=== PATIENT | male | born 1960 | race American Indian/Alaskan Native ===

== ENCOUNTER 2017-06-22 08:04 | Emergency (ER) | payer MEDICAID ==
--- NOTE | 2017-06-22 09:26 | Cat Scan Report ---
CT HEAD WITHOUT CONTRAST INDICATION: Fall. History of brain and lung cancer. COMPARISON: None similar. FINDINGS: Noncontrast head CT demonstrates extensive bilateral white matter hypodensities within both frontal lobes, left more than right and extending to the cortex/vertex, possibly edema and/or encephalomalacia with grossly preserved supratentorial ventricles and sulci. No acute hemorrhage or abnormal extra axial fluid collections. Posterior fossa now demonstrates approximately 3 x 3.2 cm left cerebellar hypodense edema as on axial image 18, series 2, amongst others with mild flattening of the fourth ventricle on the left and slightly displaced towards the right by approximately 2-3 mm. Basilar cisterns though preserved. Normal eye globes. Partially imaged 3-4 mm rightward nasal septal spur. Mild right maxillary sinus mucosal thickening medially as also slight sphenoid sinus mucosal thickening anteriorly. Mild to moderate bilateral ethmoid air cell opacification. Clear remainder imaged paranasal sinuses. Mild atherosclerotic ICA calcifications. Normal calvarium and scalp. Numerous missing teeth and a small mandibular dental filling. CONCLUSION: 1. Approximately 3 cm left cerebellar hypodense edema with mild mass effect upon the fourth ventricle, as detailed above, possibly metastatic disease/edema in light of known cancer or infarct. 2. Extensive bilateral white matter hypodense possible edema as well. 3. Few other incidental findings, as above. Please also correlate clinically and further with contrasted MRI, as warranted. Thank you for the opportunity to participate in this patient's care.
[2017-06-22 10:07] LABS: Hematocrit 32.8 % (35.5-45.6); Hemoglobin 10.8 gm/dl (11.8-15.2); Mean Corpuscular HGB Conc 33 % (32-34); Mean Corpuscular Hemoglobin 34 pg (28-32); Mean Corpuscular Volume 102 fl (84-94); Platelet Count 253 K/mm3 (140-440); Red Blood Count 3.23 M/mm3 (3.65-5.03); White Blood Count 7.7 K/mm3 (4.5-11.0)
[2017-06-22 10:13] LABS: Red Cell Distribution Width 21.1 % (13.2-15.2)
[2017-06-22 10:22] LABS: Anion Gap 18 mmol/L; BUN/Creatinine Ratio 22; Blood Urea Nitrogen 13 mg/dL (9-20); Calcium 9.3 mg/dL (8.4-10.2); Carbon Dioxide 23 mmol/L (22-30); Chloride 100.3 mmol/L (98-107); Glucose 86 mg/dL (75-100); Potassium 3.8 mmol/L (3.6-5.0); Sodium 137 mmol/L (137-145)
[2017-06-22 10:34] LABS: INR 1.14 (0.87-1.13)
[2017-06-22 10:35] LABS: Partial Thromboplastin Time 41.4 Sec. (24.2-36.6)
[2017-06-22 10:57] LABS: Anisocytosis 1+; Basophils % (Manual) 0 % (0.0-1.8); Blastocytes % (Manual) 0 %; Diff Status Complete; Platelet Estimate Consistent w Auto
--- NOTE | 2017-06-22 11:24 | XRay Report ---
PORTABLE CHEST INDICATION: Tachycardia, weakness. COMPARISON: 06/17/2017 FINDINGS: Portable, frontal chest radiograph again demonstrates extensive, approximately 10-11 cm right upper lobe opacification, possibly consolidation or mass. Similar size, extensive emphysematous involvement of the left upper lobe also seen with slightly crowded markings in the remainder aerated lungs. Mild left lower lung atelectasis or scarring. Stable cardiomediastinal silhouette, left subclavian port tip about the cavoatrial junction, EKG leads and osseous structures. CONCLUSION: No significant interval change in large right upper lobe opacity in this patient with underlying emphysematous changes and few other findings, as above. Please correlate clinically. Direct comparison with more remote chest imaging would also be helpful, if available. Thank you for the opportunity to participate in this patient's care.
[2017-06-22] MEDS ORDERED: DECADRON IV ONE (12:11)
[2017-06-22] MEDS ORDERED: NACL 0.9% 250ML 250 ML ONE (12:38)
[2017-06-22] MEDS ORDERED: NACL 0.9% 250ML 250 ML IV ONE (12:38)
--- NOTE | 2017-06-22 13:08 | Emergency Department Report ---
ED General Adult HPI - General Chief complaint: Neuro Symptoms/Deficit Stated complaint: FALL,HIT HEAD,SPEECH SLURRED Time Seen by Provider: 06/22/17 10:41 Source: patient, family, RN notes reviewed, old records reviewed Mode of arrival: Wheelchair Limitations: Physical Limitation, Other (patient is a poor historian.) - History of Present Illness Initial comments: This is a 56-year-old male. The patient is previously unknown to this provider. Patient has a past medical history of lung adenocarcinoma. Recently moved here from [place]. Unknown what his metastatic. Patient has been previously hospitalized at the [facility]. His medical oncologist appears to be a Dr. Rocco Bunch. Patient is supposed to be taking chemotherapy, however he does not know what chemotherapy agents he is taking. Family does have some of his paperwork with him, it appears that he was on carboplatin, as well as alimta; this is from paperwork from February 2017. As per triage nurse documentation, patient is brought to the hospital by family for fall and generalized weakness. Patient had a fall yesterday and a fall this morning. Patient can't recall the fall. He has chronic weakness in the right upper and right lower extremity. Patient is a poor historian, he cannot describe exacerbating or relieving factors, nor he can describe a qualitative nature of his symptoms. He denies headache and neck pain, chest pain, abdominal pain. He has chronic shortness of breath which is not a new, worsening or different. -: Sudden Radiation: other (per hpi) Severity scale (0 -10): 0 Quality: other (per hpi) Consistency: other (per hpi) Improves with: other (per hpi) Associated Symptoms: confusion, loss of appetite, shortness of breath, weakness - Related Data Previous Rx's Medication Instructions Recorded Last Taken Type Promethazine [Phenergan TAB] 25 mg PO Q6HR PRN #20 tab 06/17/17 Unknown Rx metroNIDAZOLE [Flagyl] 500 mg PO Q8HR #21 tablet 06/17/17 Unknown Rx valACYclovir [Valtrex] 500 mg PO TID #21 tab 06/17/17 Unknown Rx Allergies Allergy/AdvReac Type Severity Reaction Status Date / Time No Known Allergies Allergy Verified 06/17/17 00:06 ED Review of Systems ROS: Stated complaint: FALL,HIT HEAD,SPEECH SLURRED Other details as noted in HPI Comment: Unobtainable due to pts medical conditions ED Past Medical Hx - Past Medical History Previous Medical History?: Yes Hx of Cancer: Yes (lung, brain) Hx Seizures: Yes Additional medical history: Anemia. Anorexia. AMS - Surgical History Past Surgical History?: No - Social History Smoking Status: Former Smoker Substance Use Type: Prescribed - Medications Home Medications: Home Medications Medication Instructions Recorded Confirmed Last Taken Type Promethazine [Phenergan TAB] 25 mg PO Q6HR PRN #20 tab 06/17/17 Unknown Rx metroNIDAZOLE [Flagyl] 500 mg PO Q8HR #21 tablet 06/17/17 Unknown Rx valACYclovir [Valtrex] 500 mg PO TID #21 tab 06/17/17 Unknown Rx ED Physical Exam - General Limitations: Physical Limitation, Other (patient is a poor historian) General appearance: in no apparent distress - Head Head exam: Present: atraumatic, normocephalic - Eye Eye exam: Present: normal appearance, EOMI - ENT ENT exam: Present: normal exam, normal orophraynx, mucous membranes moist - Neck Neck exam: Present: normal inspection, full ROM - Respiratory Respiratory exam: Present: normal lung sounds bilaterally. Absent: respiratory distress, wheezes, rales, rhonchi, stridor, chest wall tenderness, accessory muscle use, decreased breath sounds, prolonged expiratory - Cardiovascular Cardiovascular Exam: Present: normal rhythm, tachycardia, normal heart sounds. Absent: systolic murmur, diastolic murmur, rubs, gallop - GI/Abdominal GI/Abdominal exam: Present: soft, normal bowel sounds. Absent: distended, tenderness, guarding, rebound, rigid, pulsatile mass - Rectal Rectal exam: Present: deferred - Extremities Exam Extremities exam: Present: normal inspection, normal capillary refill. Absent: tenderness - Back Exam Back exam: Present: normal inspection. Absent: paraspinal tenderness, vertebral tenderness - Neurological Exam Neurological exam: Present: alert (patient alert to name, knows that he is in a hospital, and knows the year), motor sensory deficit (4-5 strength right upper, right lower extremity. 5 out of 5 strength left upper, left lower extremity), other (sensation intact to light touch in 4 extremities. There is no facial droop. The tongue is midline. Extraocular movements are intact. Hearing is intact bilaterally. Phonation is normal, palate elevates symmetrically.) - Psychiatric Psychiatric exam: Present: normal affect, normal mood - Skin Skin exam: Present: warm, dry, intact, normal color. Absent: rash ED Course Vital Signs 06/22/17 06/22/17 06/22/17 08:08 08:56 09:01 Temperature 97.7 F Pulse Rate 61 113 H Respiratory 16 22 14 Rate Blood Pressure 117/71 Blood Pressure [Left] O2 Sat by Pulse 90 87 Oximetry 06/22/17 06/22/17 06/22/17 09:15 09:31 09:45 Temperature Pulse Rate 119 H 118 H 115 H Respiratory 16 15 15 Rate Blood Pressure 111/83 Blood Pressure [Left] O2 Sat by Pulse 100 Oximetry 06/22/17 06/22/17 06/22/17 10:00 10:15 10:31 Temperature Pulse Rate 117 H 120 H 119 H Respiratory 14 20 15 Rate Blood Pressure 105/82 111/83 111/83 Blood Pressure [Left] O2 Sat by Pulse 100 100 100 Oximetry 06/22/17 06/22/17 06/22/17 10:45 11:01 11:15 Temperature Pulse Rate 120 H 116 H 117 H Respiratory 25 H 26 H 18 Rate Blood Pressure 111/83 101/75 101/75 Blood Pressure [Left] O2 Sat by Pulse 100 100 Oximetry 06/22/17 06/22/17 06/22/17 11:23 11:31 11:45 Temperature 99.4 F Pulse Rate 120 H 121 H 120 H Respiratory 18 21 22 Rate Blood Pressure 101/75 101/75 Blood Pressure 101/75 [Left] O2 Sat by Pulse 99 99 Oximetry 06/22/17 06/22/17 06/22/17 12:00 12:15 12:31 Temperature Pulse Rate 118 H 122 H 122 H Respiratory 18 22 19 Rate Blood Pressure 101/75 100/76 100/76 Blood Pressure [Left] O2 Sat by Pulse Oximetry 06/22/17 06/22/17 06/22/17 13:02 13:15 13:31 Temperature Pulse Rate Respiratory Rate Blood Pressure 100/76 100/76 100/76 Blood Pressure [Left] O2 Sat by Pulse 74 L 91 91 Oximetry 06/22/17 06/22/17 06/22/17 13:45 13:54 14:01 Temperature Pulse Rate 122 H 122 H Respiratory 16 23 Rate Blood Pressure 100/76 119/88 Blood Pressure 115/90 [Left] O2 Sat by Pulse 99 99 96 Oximetry 06/22/17 06/22/17 06/22/17 14:15 14:31 14:45 Temperature Pulse Rate 117 H 128 H Respiratory 14 18 Rate Blood Pressure 119/88 119/88 119/88 Blood Pressure [Left] O2 Sat by Pulse 100 100 100 Oximetry 06/22/17 06/22/17 06/22/17 15:01 15:15 15:31 Temperature Pulse Rate 122 H 125 H 123 H Respiratory 18 16 22 Rate Blood Pressure 104/65 104/65 104/65 Blood Pressure [Left] O2 Sat by Pulse Oximetry 06/22/17 06/22/17 06/22/17 15:45 16:01 16:15 Temperature Pulse Rate 124 H 123 H 127 H Respiratory 19 18 13 Rate Blood Pressure 104/65 104/65 104/65 Blood Pressure [Left] O2 Sat by Pulse Oximetry 06/22/17 06/22/17 06/22/17 16:31 16:45 17:01 Temperature Pulse Rate 127 H 119 H 118 H Respiratory 16 15 16 Rate Blood Pressure 104/65 104/65 104/65 Blood Pressure [Left] O2 Sat by Pulse Oximetry 06/22/17 06/22/17 06/22/17 17:15 17:31 17:45 Temperature Pulse Rate 120 H 125 H 122 H Respiratory 17 18 11 L Rate Blood Pressure 104/65 104/65 104/65 Blood Pressure [Left] O2 Sat by Pulse Oximetry 06/22/17 06/22/17 06/22/17 18:01 18:15 18:31 Temperature Pulse Rate 120 H 117 H 122 H Respiratory 13 32 H 18 Rate Blood Pressure 104/65 104/65 104/65 Blood Pressure [Left] O2 Sat by Pulse Oximetry 06/22/17 06/22/17 06/22/17 18:45 19:00 19:15 Temperature Pulse Rate 123 H 117 H 119 H Respiratory 14 17 14 Rate Blood Pressure 104/65 111/87 111/87 Blood Pressure [Left] O2 Sat by Pulse Oximetry 06/22/17 06/22/17 06/22/17 19:31 19:45 20:00 Temperature Pulse Rate 119 H 121 H 117 H Respiratory 22 10 L 10 L Rate Blood Pressure 111/87 111/87 106/80 Blood Pressure [Left] O2 Sat by Pulse Oximetry 06/22/17 06/22/17 06/22/17 20:15 20:31 20:45 Temperature Pulse Rate 114 H 115 H 116 H Respiratory 16 25 H 19 Rate Blood Pressure 106/80 106/80 106/80 Blood Pressure [Left] O2 Sat by Pulse Oximetry 06/22/17 06/22/17 06/22/17 21:01 21:15 21:31 Temperature Pulse Rate 115 H 114 H 115 H Respiratory 20 19 15 Rate Blood Pressure 106/76 106/76 106/76 Blood Pressure [Left] O2 Sat by Pulse Oximetry 06/22/17 22:01 Temperature Pulse Rate Respiratory Rate Blood Pressure 99/64 Blood Pressure [Left] O2 Sat by Pulse Oximetry - Reevaluation(s) Reevaluation #1: 06/22/17 13:13 Differential diagnosis, including but not limited to: Intracranial injury, cervical spine injury, pneumonia, urinary tract infection, electrolyte to range it, dehydration Assessment and plan: 56-year-old male with chronic right-sided weakness, extensive oncologic history, presenting with fall and generalized weakness, noncontrast CT scan of brain demonstrated numerous nonspecific findings, including 3 cm of left cerebellar hypodense edema with mild mass effect upon the fourth ventricle, possibly metastatic disease or edema. Also found to have extensive bilateral white matter hypodense possible edema as well. This hospital does not have neurology or neurosurgery available for consultation. CT scan findings and case as well as physical exam findings were presented to Dr. Rodriguez, consult the neurologist at [facility]. He reviewed the patient's CT scan findings, and did not think that neurosurgical consultation was emergently required, but did recommend medical oncology evaluation. The case was then presented to the consult and medical oncologist and [facility], Dr. Gomez, who stated that the medical oncology service would be amenable to consulting on the patient, however they declined to accept him as a transfer because patient is not a known patient to the [facility] oncology service. The case was then presented to the Hospital physician, Dr. Ward, at [facility], who accepted the patient as a transfer. Dr. Rodriguez did recommend 6 mg of Decadron IV every 6 hours. Tachycardia is appreciated, given cerebral edema, reluctant to volume load, however we'll give the patient a trial of 250 mL of normal saline. Patient was afebrile rectally, with no urinary symptoms, and an unchanged chest x-ray from prior, therefore think pneumonia and urinary tract infection are unlikely. Given lack of chest pain and shortness of breath, as well as lack of hypoxia, think pulmonary embolus is unlikely at this time. In addition, with the patient's CT scan findings, especially concern for metastatic disease, systemic anticoagulation may result in hemorrhagic transformation, therefore reluctant to provide empiric systemic anticoagulation. Given that the patient is a complex oncologic patient with concerning CT scan findings, I believe is in the patient's best interest to be transferred to a tertiary care center, but has consulting services, including neurology and neurosurgery, as well as medical oncology to definitively manage this patient. Patient did endorse that he is currently hospice patient. 06/22/17 13:20 ED Medical Decision Making - Lab Data Result diagrams: 06/22/17 Unknown 06/22/17 Unknown Vital Signs 06/22/17 06/22/17 08:08 11:23 Temperature 97.7 F 99.4 F Pulse Rate 61 120 H Respiratory 16 18 Rate Blood Pressure 117/71 Blood Pressure 101/75 [Left] O2 Sat by Pulse 90 99 Oximetry Lab Results 06/22/17 06/22/17 06/22/17 Range/Units Unknown Unknown Unknown WBC 7.7 (4.5-11.0) K/mm3 RBC 3.23 L (3.65-5.03) M/mm3 Hgb 10.8 L (11.8-15.2) gm/dl Hct 32.8 L (35.5-45.6) % MCV 102 H (84-94) fl MCH 34 H (28-32) pg MCHC 33 (32-34) % RDW 21.1 H (13.2-15.2) % Plt Count 253 (140-440) K/mm3 Add Manual Diff Complete Total Counted 100 Seg Neuts % (Manual) 77.0 H (40.0-70.0) % Band Neutrophils % 3.0 % Lymphocytes % (Manual) 8.0 L (13.4-35.0) % Reactive Lymphs % (Man) 0 % Monocytes % (Manual) 11.0 H (0.0-7.3) % Eosinophils % (Manual) 1.0 (0.0-4.3) % Basophils % (Manual) 0 (0.0-1.8) % Metamyelocytes % 0 % Myelocytes % 0 % Promyelocytes % 0 % Blast Cells % 0 % Nucleated RBC % Not Reportable Seg Neutrophils # Man 5.9 (1.8-7.7) K/mm3 Band Neutrophils # 0.2 K/mm3 Lymphocytes # (Manual) 0.6 L (1.2-5.4) K/mm3 Abs React Lymphs (Man) 0.0 K/mm3 Monocytes # (Manual) 0.8 (0.0-0.8) K/mm3 Eosinophils # (Manual) 0.1 (0.0-0.4) K/mm3 Basophils # (Manual) 0.0 (0.0-0.1) K/mm3 Metamyelocytes # 0.0 K/mm3 Myelocytes # 0.0 K/mm3 Promyelocytes # 0.0 K/mm3 Blast Cells # 0.0 K/mm3 WBC Morphology Not Reportable Hypersegmented Neuts Not Reportable Hyposegmented Neuts Not Reportable Hypogranular Neuts Not Reportable Smudge Cells Not Reportable Toxic Granulation Not Reportable Toxic Vacuolation Not Reportable Dohle Bodies Not Reportable Pelger-Huet Anomaly Not Reportable Addy Rods Not Reportable Platelet Estimate Consistent w auto Clumped Platelets Not Reportable Plt Clumps, EDTA Not Reportable Large Platelets Not Reportable Giant Platelets Not Reportable Platelet Satelliting Not Reportable Plt Morphology Comment Not Reportable RBC Morphology Not Reportable Dimorphic RBCs Not Reportable Polychromasia Not Reportable Hypochromasia Not Reportable Poikilocytosis Not Reportable Anisocytosis 1+ Microcytosis Not Reportable Macrocytosis Not Reportable Spherocytes Not Reportable Pappenheimer Bodies Not Reportable Sickle Cells Not Reportable Target Cells Not Reportable Tear Drop Cells Not Reportable Ovalocytes Not Reportable Helmet Cells Not Reportable [place] Bodies Not Reportable Sterling Rings Not Reportable Humberto Cells Not Reportable Bite Cells Not Reportable Crenated Cell Not Reportable Elliptocytes Not Reportable Acanthocytes (Spur) Not Reportable Rouleaux Not Reportable Hemoglobin C Crystals Not Reportable Schistocytes Not Reportable Malaria parasites Not Reportable Devon Bodies Not Reportable Hem Pathologist Commnt No PT 15.2 H (12.2-14.9) Sec. INR 1.14 H (0.87-1.13) APTT 41.4 H (24.2-36.6) Sec. Thrombin Time (15.1-19.6) Sec. Sodium 137 (137-145) mmol/L Potassium 3.8 (3.6-5.0) mmol/L Chloride 100.3 (98-107) mmol/L Carbon Dioxide 23 (22-30) mmol/L Anion Gap 18 mmol/L BUN 13 (9-20) mg/dL Creatinine 0.6 L (0.8-1.5) mg/dL Estimated GFR > 60 ml/min BUN/Creatinine Ratio 22 % Glucose 86 (75-100) mg/dL Lactic Acid (0.7-2.0) mmol/L Calcium 9.3 (8.4-10.2) mg/dL Magnesium (1.7-2.3) mg/dL Ammonia (25-60) umol/L Troponin T < 0.010 (0.00-0.029) ng/mL TSH (0.270-4.200) mlU/mL Free T4 (0.76-1.46) ng/dL 06/22/17 06/22/17 06/22/17 Range/Units Unknown Unknown Unknown WBC (4.5-11.0) K/mm3 RBC (3.65-5.03) M/mm3 Hgb (11.8-15.2) gm/dl Hct (35.5-45.6) % MCV (84-94) fl MCH (28-32) pg MCHC (32-34) % RDW (13.2-15.2) % Plt Count (140-440) K/mm3 Add Manual Diff Total Counted Seg Neuts % (Manual) (40.0-70.0) % Band Neutrophils % % Lymphocytes % (Manual) (13.4-35.0) % Reactive Lymphs % (Man) % Monocytes % (Manual) (0.0-7.3) % Eosinophils % (Manual) (0.0-4.3) % Basophils % (Manual) (0.0-1.8) % Metamyelocytes % % Myelocytes % % Promyelocytes % % Blast Cells % % Nucleated RBC % Seg Neutrophils # Man (1.8-7.7) K/mm3 Band Neutrophils # K/mm3 Lymphocytes # (Manual) (1.2-5.4) K/mm3 Abs React Lymphs (Man) K/mm3 Monocytes # (Manual) (0.0-0.8) K/mm3 Eosinophils # (Manual) (0.0-0.4) K/mm3 Basophils # (Manual) (0.0-0.1) K/mm3 Metamyelocytes # K/mm3 Myelocytes # K/mm3 Promyelocytes # K/mm3 Blast Cells # K/mm3 WBC Morphology Hypersegmented Neuts Hyposegmented Neuts Hypogranular Neuts Smudge Cells Toxic Granulation Toxic Vacuolation Dohle Bodies Pelger-Huet Anomaly Addy Rods Platelet Estimate Clumped Platelets Plt Clumps, EDTA Large Platelets Giant Platelets Platelet Satelliting Plt Morphology Comment RBC Morphology Dimorphic RBCs Polychromasia Hypochromasia Poikilocytosis Anisocytosis Microcytosis Macrocytosis Spherocytes Pappenheimer Bodies Sickle Cells Target Cells Tear Drop Cells Ovalocytes Helmet Cells Morales-[place] Bodies Sterling Rings Humberto Cells Bite Cells Crenated Cell Elliptocytes Acanthocytes (Spur) Rouleaux Hemoglobin C Crystals Schistocytes Malaria parasites Devon Bodies Hem Pathologist Commnt PT (12.2-14.9) Sec. INR (0.87-1.13) APTT (24.2-36.6) Sec. Thrombin Time 29.0 H (15.1-19.6) Sec. Sodium (137-145) mmol/L Potassium (3.6-5.0) mmol/L Chloride (98-107) mmol/L Carbon Dioxide (22-30) mmol/L Anion Gap mmol/L BUN (9-20) mg/dL Creatinine (0.8-1.5) mg/dL Estimated GFR ml/min BUN/Creatinine Ratio % Glucose (75-100) mg/dL Lactic Acid 1.20 (0.7-2.0) mmol/L Calcium (8.4-10.2) mg/dL Magnesium (1.7-2.3) mg/dL Ammonia 34.0 (25-60) umol/L Troponin T (0.00-0.029) ng/mL TSH (0.270-4.200) mlU/mL Free T4 (0.76-1.46) ng/dL 06/22/17 06/22/17 06/22/17 Range/Units Unknown Unknown Unknown WBC (4.5-11.0) K/mm3 RBC (3.65-5.03) M/mm3 Hgb (11.8-15.2) gm/dl Hct (35.5-45.6) % MCV (84-94) fl MCH (28-32) pg MCHC (32-34) % RDW (13.2-15.2) % Plt Count (140-440) K/mm3 Add Manual Diff Total Counted Seg Neuts % (Manual) (40.0-70.0) % Band Neutrophils % % Lymphocytes % (Manual) (13.4-35.0) % Reactive Lymphs % (Man) % Monocytes % (Manual) (0.0-7.3) % Eosinophils % (Manual) (0.0-4.3) % Basophils % (Manual) (0.0-1.8) % Metamyelocytes % % Myelocytes % % Promyelocytes % % Blast Cells % % Nucleated RBC % Seg Neutrophils # Man (1.8-7.7) K/mm3 Band Neutrophils # K/mm3 Lymphocytes # (Manual) (1.2-5.4) K/mm3 Abs React Lymphs (Man) K/mm3 Monocytes # (Manual) (0.0-0.8) K/mm3 Eosinophils # (Manual) (0.0-0.4) K/mm3 Basophils # (Manual) (0.0-0.1) K/mm3 Metamyelocytes # K/mm3 Myelocytes # K/mm3 Promyelocytes # K/mm3 Blast Cells # K/mm3 WBC Morphology Hypersegmented Neuts Hyposegmented Neuts Hypogranular Neuts Smudge Cells Toxic Granulation Toxic Vacuolation Dohle Bodies Pelger-Huet Anomaly Addy Rods Platelet Estimate Clumped Platelets Plt Clumps, EDTA Large Platelets Giant Platelets Platelet Satelliting Plt Morphology Comment RBC Morphology Dimorphic RBCs Polychromasia Hypochromasia Poikilocytosis Anisocytosis Microcytosis Macrocytosis Spherocytes Pappenheimer Bodies Sickle Cells Target Cells Tear Drop Cells Ovalocytes Helmet Cells Morales-[place] Bodies Sterling Rings [place] Cells Bite Cells Crenated Cell Elliptocytes Acanthocytes (Spur) Rouleaux Hemoglobin C Crystals Schistocytes Malaria parasites Devon Bodies Hem Pathologist Commnt PT (12.2-14.9) Sec. INR (0.87-1.13) APTT (24.2-36.6) Sec. Thrombin Time (15.1-19.6) Sec. Sodium (137-145) mmol/L Potassium (3.6-5.0) mmol/L Chloride (98-107) mmol/L Carbon Dioxide (22-30) mmol/L Anion Gap mmol/L BUN (9-20) mg/dL Creatinine (0.8-1.5) mg/dL Estimated GFR ml/min BUN/Creatinine Ratio % Glucose (75-100) mg/dL Lactic Acid (0.7-2.0) mmol/L Calcium (8.4-10.2) mg/dL Magnesium 2.00 (1.7-2.3) mg/dL Ammonia (25-60) umol/L Troponin T (0.00-0.029) ng/mL TSH 0.869 (0.270-4.200) mlU/mL Free T4 1.35 (0.76-1.46) ng/dL - EKG Data -: EKG Interpreted by Me - EKG Data 06/22/17 13:20 Sinus tachycardia, 118 bpm, normal axis, poor progression, diffuse T-wave abnormalities, abnormal EKG, not morphologically consistent with stemi - Radiology Data Radiology results: report reviewed, image reviewed Critical care attestation.: If time is entered above; I have spent that time in minutes in the direct care of this critically ill patient, excluding procedure time. ED Disposition Clinical Impression: Brain edema, History of lung cancer Disposition: [id number] GEN HOSP IP Is pt being admited?: No Does the pt Need Aspirin: No Condition: Fair Referrals: PRIMARY CARE, [Primary Care Provider] - 3-5 Days
--- NOTE | 2017-06-22 13:20 | Cat Scan Report ---
CT SCAN OF THE CERVICAL SPINE: HISTORY: Fall, weakness. TECHNIQUE: Contiguous 1.25 mm axial images of the cervical spine were obtained. Sagittal and coronal reformatted images. FINDINGS: There is normal alignment of the cervical spine. The body, pedicles and posterior ligaments appear intact. Moderate degenerative disc disease at C5-6 and C6-7 are identified. No evidence of fracture or subluxation is seen. The spinal canal appears normal. The prevertebral soft tissues appear normal. IMPRESSION: Cervical spondylosis. No acute process is noted.
[2017-06-22] MEDS ORDERED: KEPPRA 1,000 MG/NS 0.75% 100ML 1,000 MG/100 ML BAG IV ONE (14:00)
[2017-06-22 14:19] LABS: Bilirubin,Urine NEG (Negative); Blood,Urine LG (Negative); Ketones,Urine NEG (Negative); Leukocyte Esterase,Urine TR (Negative); Mucus,Urine FEW /HPF; Nitrite,Urine NEG (Negative); Protein,Urine <15 mg/dL mg/dL (Negative); Urobilinogen,Urine < 2.0 mg/dL (<2.0)
[2017-06-22] MEDS ORDERED: KEPPRA 1,000 MG in NACL 0.9% 100 ML IV ONE (14:30)
[2017-06-22 22:20] VITALS: BP 99/64
== END 2017-06-22 23:19 | disposition short-term general hospital (02) ==
LOC: ED 08:04
DX: G93.6 Cerebral edema (principal); Z85.118 Personal history of other malignant neoplasm of bronchus and lung
CPT/HCPCS: 36415; 70450; 71010; 72125; 80048; 81001; 82140; 83735; 84439; 84443; 84484; 85007; 85025; 85610; 85670; 85730; 93005; 93010; 96365; 96375; 99285; J1100; J1953; J7050